=== PATIENT | male | born 1960 | race Caucasian/White ===

== ENCOUNTER 2024-01-29 11:32 | Outpatient (CLI) | payer OTHER, SELFPAY ==
--- NOTE | ~2024-01-29 | XR_ITS ---
3 VIEWS LUMBAR SPINE Ordering provider: Koby Colón, [place] History: . Low back pain . Comparison: None. FINDINGS: VERTEBRAL BODIES:Slight loss of height is seen in L5 posteriorly most likely chronic. If clinically w arranted MRI is advised. Otherwise, No visible fracture or subluxation. Degenerative changes of the s pine. DISK SPACES: Narrowing of the disc T11-T12, T12-L1 and L1-L2. Multilevel facet joint disease in the l ower lumbar area. SOFT TISSUES: Normal. IMPRESSION: No acute osseous abnormality lumbar spine. Loss of volume of the posterior aspect of L5 most likely chronic. If clinically warranted MRI is advi sed. Reviewed, dictated and finalized at location A. IMPRESSION: No acute osseous abnormality lumbar spine. Loss of volume of the posterior aspect of L5 most likely chronic. If clinically warranted MRI is advised.
--- NOTE | ~2024-01-29 | XR_ITS ---
AP and lateral views of the left hip Clinical history: Pain Findings: No acute fracture or dislocation is seen. Osseous alignment is anatomic. Bilateral hip and SI joint spaces are preserved. Soft tissues are unremarkable. Impression: No significant abnormality is seen. Reviewed, dictated and finalized at location . Impression: No significant abnormality is seen.
== END 2024-01-29 11:33 | disposition home or self-care (01) ==
PROVIDERS: PCP Chiropractor; Visit Provider Chiropractor
DX: E86.9 Volume depletion, unspecified (principal); M25.552 Pain in left hip
CPT/HCPCS: 72114; 73502